=== PATIENT | female | born 1960 | race Caucasian/White ===

== ENCOUNTER 2016-03-30 07:31 | Emergency (ER) | payer BC ==
[~2016-03-30] VITALS: Ht 154.9 cm; Wt 125.0 kg
[2016-03-30] MEDS ORDERED: OMEPRAZOLE40 M1 PO (08:19)
[2016-03-30] MEDS ORDERED: CARVEDILOL6.25 MG PO (08:19)
[2016-03-30] MEDS ORDERED: PHENAZOPYRIDIN200 MG PO (08:20)
[2016-03-30] MEDS ORDERED: LOSARTAN POTASS50 MG PO (08:20)
[2016-03-30] MEDS ORDERED: ATORVASTATIN CA80 MG PO (08:20)
[2016-03-30 08:52] LABS: ADD MIUA? YES; BILIRUBIN NEGATIVE; BLOOD SMALL; COLOR YELLOW ((YELLOW)); GLUCOSE (STRIP) NEGATIVE; KETONES NEGATIVE; LEUKOCYTES SMALL; NITRITE NEGATIVE; PROTEIN (STRIP) NEGATIVE; SPECIFIC GRAVITY 1.023 (1.000-1.030); UROBILINOGEN 0.2 MG/DL (0.2-1.0)
[2016-03-30 09:23] LABS: BACTERIA 1+ /HPF; EPITHELIAL CELLS 2+ /HPF; MUCUS NONE SEEN /LPF; RED BLOOD CELLS RARE /HPF (0-5); UCUL ADDED? NO; WHITE BLOOD CELLS 0-5 /HPF (0-5)
[2016-03-30] MEDS ORDERED: NAPROXEN500 MG PO (09:24)
[2016-03-30 09:31] VITALS: BP 135/63
== END 2016-03-30 09:29 | disposition home or self-care (01) ==
LOC: EME 07:31
PROVIDERS: Physician Assistant
DX: M54.9 Dorsalgia, unspecified (principal); I10 Essential (primary) hypertension; I25.2 Old myocardial infarction
CPT/HCPCS: 71020; 81003; 99281; 99284; J1885

== ENCOUNTER → 2016-12-25 | Outpatient (CLI) | payer OTHER ==
[~2016-12-25] VITALS: Ht 162.6 cm; Wt 127.0 kg
[~2016-12-25] MED LIST: ATORVASTATIN CA80 MG PO; CARVEDILOL6.25 MG PO; COREG6.25 M1 PO; COZAAR50 MG PO; LIPITOR80 MG PO; LO-DOSE ASPIRIN81 M1 PO; LOSARTAN POTASS50 MG PO; NAPROSYN500 MG PO; NAPROXEN500 MG PO; OMEPRAZOLE40 M1 PO; PHENAZOPYRIDIN200 MG PO; PRILOSEC20 MG PO; ULTRAM50 MG PO; WELLBUTRIN SR150 MG PO
== END | disposition home or self-care (01) ==
LOC: AMB 11:28
DX: R93.3 Abnormal findings on diagnostic imaging of other parts of digestive tract (principal); K25.9 Gastric ulcer, unspecified as acute or chronic, without hemorrhage or perforation; E66.01 Morbid (severe) obesity due to excess calories; Z68.42 Body mass index [BMI] 45.0-49.9, adult; I25.10 Atherosclerotic heart disease of native coronary artery without angina pectoris; Z95.5 Presence of coronary angioplasty implant and graft; I10 Essential (primary) hypertension; F32.9 Major depressive disorder, single episode, unspecified; R05 Cough; L40.9 Psoriasis, unspecified; Z82.49 Family history of ischemic heart disease and other diseases of the circulatory system; Z83.3 Family history of diabetes mellitus; Z79.82 Long term (current) use of aspirin; Z87.891 Personal history of nicotine dependence; Z88.0 Allergy status to penicillin; Z88.2 Allergy status to sulfonamides; Z91.09 Other allergy status, other than to drugs and biological substances; Z91.018 Allergy to other foods
CPT/HCPCS: 86301 90; 88305; 88342 TC; 93005; J0330; J2250; J2405; J2765; J3010